=== PATIENT | male | born 1975 | race African-American/Black ===

== ENCOUNTER 2019-03-09 23:00 | Emergency (ER) | payer SELFPAY ==
[~2019-03-09] VITALS: Ht 193 cm; Wt 103.0 kg
--- NOTE | 2019-03-09 23:45 | Diagnostic Imaging Report ---
EXAMINATION: Head CT without contrast. HISTORY:Cluster headache for one month. COMPARISON:None. TECHNIQUE: Multidetector axial images were obtained from the foramen magnum to the vertex without contrast. The images were reconstructed using brain and bone algorithms. Thin section brain images were reformatted into coronal and sagittal planes. Dose modulation, iterative reconstruction, and/or weight based adjustment of the mA/kV was utilized to reduce the radiation dose to as low as reasonably achievable. Intravenous contrast: None IMAGE QUALITY: Acceptable. FINDINGS: Skull/scalp: No lytic or blastic. lesions. No surgical changes. Parenchyma: No abnormal density. No acute hemorrhage, mass or acute major vascular territorial infarct. Arteries: No density suggestive of thrombosis. Dural sinuses: No abnormal density suggestive of thrombosis. Ventricles: No hydrocephalus or displacement. Extra-axial spaces: No abnormal density. Brain volume: Normal for age. Craniocervical junction: No mass, Chiari malformation, or basilar invagination. Sella: No mass. Paranasal/mastoid sinuses: Moderate mucosal thickening in the lateral recess of right sphenoid sinus. IMPRESSION: No intracranial abnormality. Signed by: Dr. Socorro Donovan M.D. on 03/09/2019 11:42 PM
== END 2019-03-10 00:06 | disposition home or self-care (01) ==
LOC: ER 23:00
DX: G44.011 Episodic cluster headache, intractable (principal); F17.210 Nicotine dependence, cigarettes, uncomplicated
CPT/HCPCS: 70450; 99283